=== PATIENT | female | born 1970 | race Caucasian/White ===

== ENCOUNTER 2021-01-15 09:33 | Emergency (ER) | payer BC, SELFPAY ==
[2021-01-15 09:50] VITALS: BP 140/88; PULSE 116; RESP 18; TEMP 36.9; O2SAT 100
[2021-01-15 10:37] LABS: Basophils Absolute Auto 0.1 K/mm3 (0.0-0.1); Basophils Percent Auto 0.8 % (0.2-1.2); Eosinophils Absolute Auto 0.2 K/mm3 (0-0.3); Hematocrit 41.8 % (37.0-47.0); Hemoglobin 14.3 g/dL (12.0-15.0); Immature Granulocyte Absolute 0.03 K/mm3 (0.00-0.031); Immature Granulocyte Percent A 0.3 % (0-0.5); Lymphocytes Absolute Auto 2.17 K/mm3 (0.9-3.2); Lymphocytes Percent Auto 24.2 % (18.3-44.2); Mean Corpuscular HGB Conc 34.2 g/dl (32-36); Mean Corpuscular Hemoglobin 31.8 pg (26-34); Mean Corpuscular Volume 92.9 fl (80-100); Mean Platelet Volume 9.9 fl (7.4-10.4); Monocytes Absolute Auto 0.6 K/mm3 (0.1-0.6); Monocytes Percent Auto 6.3 % (2.6-8.5); Neutrophils Absolute Auto 5.9 K/mm3 (1.3-6.7); Neutrophils Percent Auto 66.4 % (45.5-73.1); Platelet Count Result 325 k/mm3 (150-375); Red Cell Distribution Width 11.8 % (11.5-14.5)
[2021-01-15 10:45] LABS: Add Urine Microscopic? NO; Appearance Urine Clear (Clear); Bilirubin Urine Negative (Negative); Blood Urine Negative (Negative); Color Urine Straw (Yellow); Glucose Urine UA Negative (Negative); Ketones Urine Negative (Negative); Leukocyte Esterase Ur Negative LEU/UL (Negative); Mucus Urine Rare /lpf; Nitrate Urine Negative (Negative); Protein Urine Negative (Negative); RBC Urine 0-2 /hpf (0-2); Specific Grav Ur 1.005 (1.001-1.035); Squamous Epithelial Cell Urine Many /hpf (Few); Urobilinogen Urine Negative mg/dL (<2.0); WBC Urine 0-3 /hpf
[2021-01-15 10:50] LABS: Anion Gap 8 mmol/L (8-16); Blood Urea Nitrogen 11 mg/dL (7-17); Calcium 9.5 mg/dL (8.4-10.2); Carbon Dioxide 25 mmol/L (22-30); Chloride 107 mmol/L (98-107); Estimated CRCL calculation 48 ml/min; Estimated Glomerular Filt Rate 59; Glucose 99 mg/dL (65-105); Potassium 4.1 mmol/L (3.4-5.0); Sodium 140 mmol/L (137-145)
[2021-01-15] MEDS: DEXAMETHASONE SOD PHOS INJ 4 MG/ML VIAL 10 MG IV PUSH (10:51)
[2021-01-15 10:59] LABS: CRP < 0.5 mg/dL (<1.0)
[2021-01-15 11:09] LABS: Erythrocyte Sedimentation Rate 25 mm/hr (0-20)
--- NOTE | 2021-01-15 11:18 | ED.GENADULT ---
HPI - General Adult General Chief complaint: Extremity Problem,Nontraumatic Stated complaint: pain all over in my joints Time Seen by Provider: 01/15/21 09:42 Source: patient Mode of arrival: ambulatory History of Present Illness HPI narrative: Patient is a 50-year-old female who presents to emergency department for evaluation of generalized arthralgias in various locations that present for several days and resolved patient notes that this has been developing over the last several weeks patient has seen primary care for this and is currently attempting to get into rheumatology patient denies other illness or complaints or similar occurrence in the past patient on arrival does not appear distressed Related Data Allergies Allergy/AdvReac Type Severity Reaction Status Date / Time Penicillins AdvReac Mild Other Verified 01/15/21 10:01 Sulfa (Sulfonamide AdvReac Unknown yeast Verified 01/15/21 10:01 Antibiotics) infectios sulfur dioxide AdvReac Unknown Unknown Verified 01/15/21 10:01 Review of Systems Review of Systems: All systems reviewed & are unremarkable except as noted in HPI and below PMFSH Past Medical History Medical History COVID-19 11/2020 Hyperlipidemia Hypothyroidism Surgical History Surgical History History of hemorrhoidectomy 2016 Previous section (~08/2003) Family History Family History Father Acute myocardial infarction Mother Family history of malignant melanoma Other Cerebrovascular accident Family history of cardiovascular disease Family history of malignant neoplasm Family history of malignant neoplasm of breast Social History Social History Smoking packs per day: 0.5 Smoking cigarettes per day: 10.0 Years smoked: 30 Smoking pack-years: 15.00 Smoking status: Current every day smoker Tobacco type: cigarettes Alcohol intake: current Substance use: never Substance use type: does not use Gender identity (if verbalized by the patient): Female Exam Narrative: Exam Narrative: GENERAL: Well-appearing, well-nourished, and in no acute distress. HEAD: Normocephalic, atraumatic. EYES: PERRLA and EOMI. ENT: Nares clear, no rhinorrhea or epistaxis. Mucous membranes moist. CHEST: Clear to auscultation. No respiratory distress. No wheezes rales or rhonchi HEART: Regular rate and rhythm. No murmur heard. EXTREMITIES: Normal range of motion. No edema. SKIN: Warm, dry, no rash. NEURO: No focal deficits. Alert and oriented x3. Cranial nerves II through XII grossly intact PSYCH: Normal mood and affect. Course Course Emergency Course: Patient without high risk changes in her evaluation will be referred back to primary care was hydrated given anti-inflammatories in the emergency department will be given a short course of steroids and advised to follow with primary care and to continue to follow-up with rheumatology patient is aware of these recommendations Vital Signs Vital signs: Vital Signs Temperature 98.4 F 01/15/21 09:50 Pulse Rate 116 H 01/15/21 09:50 Respiratory Rate 18 01/15/21 09:50 Blood Pressure 140/88 01/15/21 09:50 Pulse Oximetry 100 01/15/21 09:50 Temperature 98.4 F 01/15/21 09:50 Pulse Rate 116 H 01/15/21 09:50 Respiratory Rate 18 01/15/21 09:50 Blood Pressure 140/88 01/15/21 09:50 Pulse Oximetry 100 01/15/21 09:50 Medical Decision Making MDM Narrative Medical decision making narrative: Patients injury or pain is consistent with musculoskeletal etiology. No signs of neurological or vascular compromise on exam. Compartments and tisues are soft without signs of compartment syndrome. Pain is felt appropriate for further evaluation on an outpatient basis. Vital Signs Vital Signs: Vital Sig
== END 2021-01-15 11:41 | disposition home or self-care (01) ==
PROVIDERS: Emergency Medicine Emergency Medical Services; Emergency Provider Emergency Medicine; PCP Family Medicine
DX: M25.50 Pain in unspecified joint (principal); E78.5 Hyperlipidemia, unspecified; E03.9 Hypothyroidism, unspecified; Z86.16 Personal history of COVID-19; F17.210 Nicotine dependence, cigarettes, uncomplicated
CPT/HCPCS: 36415; 80048; 81003; 85025; 85652; 86140; 96365; 96375; 99284; J0131; J1100

== ENCOUNTER 2021-01-15 16:18 | Outpatient (CLI) | payer BC, SELFPAY ==
[2021-01-15 17:36] LABS: CRP < 0.5 mg/dL (<1.0)
[2021-01-15 17:58] LABS: Rheumatoid Factor > 120.0 IU/ML (<12)
[2021-01-18 11:21] LABS: Anti Cyclic Citrullinated Pept >250 Units (<20)
== END 2021-01-15 16:19 | disposition home or self-care (01) ==
LOC: ANHLAB 16:20
PROVIDERS: PCP Family Medicine; Visit Provider Family Medicine
DX: M13.0 Polyarthritis, unspecified (principal)
CPT/HCPCS: 36415; 86038; 86140; 86200; 86430

== ENCOUNTER 2022-02-06 00:35 | Day surgery (SDC) | payer BC, SELFPAY ==
[2022-01-30 13:03] VITALS: BMI 24.0
[2022-02-06 08:04] VITALS: BP 103/82; PULSE 82; RESP 20; TEMP 36.2; O2SAT 100; BMI 24.3
[2022-02-06] MEDS: LACTATED RINGERS 1,000 ML 150 ML IV CONT (08:16)
--- NOTE | 2022-02-06 08:17 | WPDGICN ---
Assessment and Plan Assessment and plan (1) Encounter for screening colonoscopy: Code(s): Z12.11 - Encounter for screening for malignant neoplasm of colon Status: Acute Assessment and Plan: Patient presents for screening colonoscopy. She appears to be at average risk for colon polyps. Further recommendations will be given after endoscopy. GI Consult Note Consult date/time: 02/06/22 08:17 HPI: Roro Wagoner is a 51 year old female Presents for screening colonoscopy. Patient reports that her current weight appetite and bowel movements are normal. She denies abdominal pain. She has had no bleeding. Family history is noncontributory. Review of Systems Review of Systems: All systems reviewed & are unremarkable except as noted in HPI and below PMFSH Past Medical History Medical History COVID-19 11/2020 Hyperlipidemia Hypothyroidism Rheumatoid arthritis with positive rheumatoid factor Surgical History Surgical History History of hemorrhoidectomy 2016 Previous section (~08/2003) Family History Family History Father Acute myocardial infarction Mother Family history of malignant melanoma Other Cerebrovascular accident Family history of cardiovascular disease Family history of malignant neoplasm Family history of malignant neoplasm of breast Social History Social History Smoking packs per day: 0.5 Smoking cigarettes per day: 10.0 Years smoked: 30 Smoking pack-years: 15.00 Smoking status: Current every day smoker Tobacco type: cigarettes Alcohol intake: current Substance use: never Substance use type: does not use Living arrangements: with family Gender identity (if verbalized by the patient): Female Spiritual care concerns: No Meds Home Medications and Allergies Home Medications Medication Instructions Recorded Confirmed Type folic acid 1 mg tablet 1 mg PO DAILY #90 tablet 03/20/21 01/30/22 Rx levonorgestrel 20 mcg/24 hours (7 1 device INTRAUTERINE ONCE 03/20/21 01/30/22 History yrs) 52 mg intrauterine device methotrexate sodium 2.5 mg tablet 20 mg PO WEEKLY tablet 03/20/21 01/30/22 History Centrum Women 1 cap PO DAILY 01/30/22 01/30/22 History Vitamin D3 1 cap PO DAILY 01/30/22 01/30/22 History vitamin B complex 1 cap PO DAILY 01/30/22 01/30/22 History levothyroxine 75 mcg tablet 75 mcg PO DAILY #90 tablet 02/04/22 Rx Allergies Allergy/AdvReac Type Severity Reaction Status Date / Time Sulfa (Sulfonamide AdvReac Unknown yeast Verified 02/06/22 08:04 Antibiotics) infectios Vital Signs Vital Signs - 24 hr 02/06/22 08:04 Temperature 97.2 F L Pulse Rate 82 Respiratory Rate 20 Blood Pressure 103/82 Pulse Oximetry 100 Exam Narrative: Physical exam reveals patient be alert. Vital signs stable. HEENT exam is unremarkable. Patient is anicteric. Lungs are clear to auscultation and percussion. Heart is without murmur or extra sounds. Abdominal exam bowel sounds are present soft nontender with no organomegaly. Digital external rectal exam is normal.
--- NOTE | 2022-02-06 08:31 | WPDANESEPPF ---
Anes - Initial Pre Proc Eval Procedure: Operation Date: 02/06/22 09:00 Proposed Procedures p Screening Colonoscopy - Delonte Quiros MD Date/Time: 02/06/22 08:31 Surgeon: Delonte Quiros MD Pre Op Diagnosis: neoplasm screening Patient Data Age: 51 Gender: F Height: 1.57 m Weight: 60.2 kg Last Vital Signs Temp 97.2 F L 02/06/22 08:04 Pulse 82 02/06/22 08:04 Resp 20 02/06/22 08:04 BP 103/82 02/06/22 08:04 Pulse Ox 100 02/06/22 08:04 Allergies Allergy/AdvReac Type Severity Reaction Status Date / Time Sulfa (Sulfonamide AdvReac Unknown yeast Verified 02/06/22 08:04 Antibiotics) infectios Home Medications Medication Instructions Recorded Confirmed Type folic acid 1 mg tablet 1 mg PO DAILY #90 tablet 03/20/21 01/30/22 Rx levonorgestrel 20 mcg/24 hours (7 1 device INTRAUTERINE ONCE 03/20/21 01/30/22 History yrs) 52 mg intrauterine device methotrexate sodium 2.5 mg tablet 20 mg PO WEEKLY tablet 03/20/21 01/30/22 History Centrum Women 1 cap PO DAILY 01/30/22 01/30/22 History Vitamin D3 1 cap PO DAILY 01/30/22 01/30/22 History vitamin B complex 1 cap PO DAILY 01/30/22 01/30/22 History levothyroxine 75 mcg tablet 75 mcg PO DAILY #90 tablet 02/04/22 Rx Patient hx anesthesia problems: none Family hx anesthesia problems: none Results Review: All pre-operative results and documents have been reviewed as part of the pre-operative evaluation. [facility] Past Medical History Medical History COVID-19 11/2020 Hyperlipidemia Hypothyroidism Rheumatoid arthritis with positive rheumatoid factor Surgical History Surgical History History of hemorrhoidectomy 2016 Previous section (~08/2003) Family History Family History Father Acute myocardial infarction Mother Family history of malignant melanoma Other Cerebrovascular accident Family history of cardiovascular disease Family history of malignant neoplasm Family history of malignant neoplasm of breast Social History Social History Smoking packs per day: 0.5 Smoking cigarettes per day: 10.0 Years smoked: 30 Smoking pack-years: 15.00 Smoking status: Current every day smoker Tobacco type: cigarettes Alcohol intake: current Substance use: never Substance use type: does not use Living arrangements: with family Gender identity (if verbalized by the patient): Female Spiritual care concerns: No Anes - Eval Final PreProcedure Day of Procedure 02/06/22 08:31 Patient weight: normal Heart: regular rate and rhythm Lungs: clear to auscultation Airway: Mallampati scale class II Neurological: alert and oriented Last oral intake: >/= 8 hours ASA classification: III Emergent: no Anesthetic plan: proceed Anesthesia type and monitoring: general GIVS and standard monitoring Results Review: All pre-operative results and documents have been reviewed as part of the pre-operative evaluation. Informed Consent: The patient's anesthetic plan and its attendant risks and benefits were discussed with the patient/family/POA. Questions were solicited and answers provided to the satisfaction of the patient/family/POA.
[2022-02-06 09:12] VITALS: BP 121/83; PULSE 80; RESP 16; O2SAT 98
[2022-02-06 09:22] VITALS: BP 119/85; PULSE 83; RESP 20; O2SAT 98
[2022-02-06 09:32] VITALS: BP 112/77; PULSE 69; RESP 20; O2SAT 100
== END 2022-02-06 10:26 | disposition home or self-care (01) ==
PROVIDERS: PCP Family Medicine; Visit Provider Internal Medicine Gastroenterology
PROC: 0DJD8ZZ Inspection of Lower Intestinal Tract, Via Natural or Artificial Opening Endoscopic (ICD-10-PCS; CPT 45378; principal; 2022-02-06 09:00)
DX: Z12.11 Encounter for screening for malignant neoplasm of colon (principal); E78.5 Hyperlipidemia, unspecified; E03.9 Hypothyroidism, unspecified; M05.9 Rheumatoid arthritis with rheumatoid factor, unspecified; F17.210 Nicotine dependence, cigarettes, uncomplicated; K64.8 Other hemorrhoids
CPT/HCPCS: 45378; J2704; J7120